=== PATIENT | male | born 1990 | race African-American/Black ===

== ENCOUNTER 2020-11-01 13:58 | Emergency (ER) | payer SELFPAY ==
--- NOTE | ~2020-11-01 | XR_ITS ---
EXAMINATION: XR chest 2V 11/01/2020 14:26 INDICATION: Chest pain. Productive cough. PROCEDURE: 2 view chest COMPARISON: No prior studies for comparison. FINDINGS: The lungs are clear. The cardiomediastinal silhouette is within normal limits. There are no pleural effusions. There is no pneumothorax suspected. IMPRESSION: 1: NO ACUTE CARDIOPULMONARY DISEASE. Reviewed, dictated and finalized at location A.
[2020-11-01 14:10] VITALS: BP 119/58; PULSE 70; RESP 18; TEMP 36.9; O2SAT 100
--- NOTE | 2020-11-01 14:15 | ECG_ITS ---
Measurements Intervals [place] Rate: 68 P: 58 MN: 169 QRS: 81 QRSD: 85 T: 50 QT: 370 QTc: 394 Interpretive Statements SINUS RHYTHM WITH SINUS ARRHYTHMIA NONSPECIFIC ST ELEVATION BORDERLINE ECG Electronically Signed On 11-01-2020 18:26:37 CDT by Librado Reid D.O.
[2020-11-01 14:29] LABS: Basophils Absolute Auto 0.1 K/mm3 (0.0-0.1); Basophils Percent Auto 0.6 % (0.2-1.2); Eosinophils Absolute Auto 0.1 K/mm3 (0-0.3); Eosinophils Percent Auto 0.7 % (0-4.4); Hematocrit 47.2 % (42.0-52.0); Hemoglobin 14.8 g/dL (14.0-18.0); Immature Granulocyte Absolute 0.02 K/mm3 (0.00-0.031); Immature Granulocyte Percent A 0.2 % (0-0.5); Lymphocytes Absolute Auto 1.77 K/mm3 (0.9-3.2); Lymphocytes Percent Auto 19.8 % (18.3-44.2); Mean Corpuscular HGB Conc 31.4 g/dl (32-36); Mean Platelet Volume 9.9 fl (7.4-10.4); Monocytes Absolute Auto 0.6 K/mm3 (0.1-0.6); Monocytes Percent Auto 6.5 % (2.6-8.5); Neutrophils Absolute Auto 6.5 K/mm3 (1.3-6.7); Neutrophils Percent Auto 72.2 % (45.5-73.1); Platelet Count Result 222 k/mm3 (150-375); Red Blood Count 5.49 M/mm3 (4.6-6.20); Red Cell Distribution Width 12.6 % (11.5-14.5)
[2020-11-01 14:39] LABS: Anion Gap 8 mmol/L (8-16); Blood Urea Nitrogen 14 mg/dL (9-20); Calcium 9.7 mg/dL (8.4-10.2); Carbon Dioxide 31 mmol/L (22-30); Chloride 102 mmol/L (98-107); Estimated CRCL calculation 94 ml/min; Estimated Glomerular Filt Rate > 60; Glucose 107 mg/dL (75-110); Potassium 3.9 mmol/L (3.4-5.0); Sodium 141 mmol/L (137-145)
[2020-11-01 14:41] LABS: Prothrombin Time 12.6 Seconds (11.1-14.7)
[2020-11-01 14:43] LABS: Partial Thromboplastin Time 28.1 SECONDS (22.3-36.8)
[2020-11-01 14:51] LABS: Troponin I < 0.012 ng/mL (0.000-0.034)
[2020-11-01] MEDS: ASPIRIN 81 MG CHEWABLE TABLET 324 MG PO (16:42)
[2020-11-01 16:44] VITALS: BP 124/79; PULSE 73; RESP 18; O2SAT 98
--- NOTE | 2020-11-01 17:09 | ED.URI ---
HPI - URI/Sore Throat General Chief Complaint: Upper Respiratory Infection Stated Complaint: chest congestion, productive cough Time Seen by Provider: 11/01/20 16:28 Source: patient and RN notes reviewed Mode of arrival: ambulatory Limitations: no limitations History of Present Illness HPI Narrative: This is a 30 year old male who presents for evaluation of URI symptoms. He developed symptoms 5 days ago . He has coughing. He reports he is coughing greenish brown phlegm. He has sinus congestion. HE also reports midsternal chest pain only when he coughs. He denies fever, vomiting, diarrhea, leg swelling or sob. He reports sore throat only in the morning. He has not been vaccinated for COVID . He has been using OTC medication without relief of his cough. Related Data Allergies Allergy/AdvReac Type Severity Reaction Status Date / Time No Known Allergies Allergy Verified 11/01/20 16:43 Review of Systems Review of Systems: All systems reviewed & are unremarkable except as noted in HPI and below PMFSH Past Medical History Medical History (Updated 11/02/20 @ 00:00 by Zari Knowles) Patient denies medical problems Surgical History Surgical History (Updated 11/01/20 @ 17:18 by Ebonie Reina MD) No pertinent past surgical history Social History Social History (Updated 11/01/20 @ 17:18 by Ebonie Reina MD) Smoking status: Never smoker Gender identity (if verbalized by the patient): Male Exam Narrative: Exam Narrative: GENERAL: Well-appearing, well-nourished, and in no acute distress. HEAD: Normocephalic, atraumatic EYES: PERRLA and EOMI, conjunctiva clear without discharge EARS: TM's clear bilaterally without erythema or dullness NOSE: Nares clear, no rhinorrhea or epistaxis THROAT:Mucous membranes moist, Oropharynx normal without erythema, exudate, peritonsillar swelling or fluctuance NECK: Supple, without lymphadenopathy or mass RESPIRATORY: No respiratory distress, Airway patent, Respirations non-labored, Clear to auscultation without rales, rhonchi or wheeze HEART: Regular rate and rhythm. No murmur heard. Normal peripheral pulses. ABDOMEN: Soft, nontender, nondistended, normal active bowel sounds. No masses. No rebound or guarding, No organomegaly. EXTREMITIES: No edema, normal strength with full range of motion. SKIN: Warm, dry, normal color without rash NEURO: Alert and oriented x3. CN 2-12 grossly intact. No focal deficits. PSYCH: Normal mood and affect. Course Reevaluation(s) Reevaluation #1: Patient has negative influenza. He has been tested for covid. He will be treated for URI viral Date: 11/01/20 Time: 17:39 Vital Signs Vital signs: Vital Signs Temperature 98.4 F 11/01/20 14:10 Pulse Rate 70 11/01/20 14:10 Respiratory Rate 18 11/01/20 14:10 Blood Pressure 119/58 L 11/01/20 14:10 Pulse Oximetry 100 11/01/20 14:10 Temperature 98.4 F 11/01/20 14:10 Pulse Rate 70 11/01/20 18:05 Respiratory Rate 13 11/01/20 18:05 Blood Pressure 135/90 11/01/20 18:05 Pulse Oximetry 100 11/01/20 18:05 MDM - URI/Sore Throat Lab Data Attestation: I reviewed the patient's lab results. Result diagrams: 11/01/20 14:18 11/01/20 14:18 Labs: Lab Results 11/01/20 11/01/20 11/01/20 Range/Units 14:18 14:18 14:18 WBC 9.0 (4.5-10.0) K/mm3 RBC 5.49 (4.6-6.20) M/mm3 Hgb 14.8 (14.0-18.0) g/dL Hct 47.2 (42.0-52.0) % MCV 86.0 (80-100) fl MCH 27.0 (26-34) pg MCHC 31.4 L (32-36) g/dl RDW 12.6 (11.5-14.5) % Plt Count 222 (150-375) k/mm3 MPV 9.9 (7.4-10.4) fl Immature Gran % (Auto) 0.2 (0-0.5) % Neut % (Auto) 72.2 (45.5-73.1) % Lymph % (Auto) 19.8 (18.3-44.2) % Murray % (Auto) 6.5 (2.6-8.5) % Eos % (Auto) 0.7 (0-4.4) % Baso % (Auto) 0.6 (0.2-1.2) % Lymph # (Auto) 1.77 (0.9-3.2) K/mm3 Murray # (Auto) 0.6 (0.1-0.6) K/mm3 Eos # (Auto)
[2020-11-01 18:05] VITALS: BP 135/90; PULSE 70; RESP 13; O2SAT 100
[2020-11-02 16:50] LABS: SARS-CoV-2 RNA PCR Negative
== END 2020-11-01 18:12 | disposition home or self-care (01) ==
PROVIDERS: Emergency Medicine; Emergency Provider General Practice
DX: J06.9 Acute upper respiratory infection, unspecified (principal); Z20.822 Contact with and (suspected) exposure to COVID-19; R94.31 Abnormal electrocardiogram [ECG] [EKG]
CPT/HCPCS: 36415; 71046; 80048; 84484; 85025; 85610; 85730; 87804; 93005; 99284; A9270; C9803; U0003; U0005